=== PATIENT | male | born 1980 | race Caucasian/White ===

== ENCOUNTER 2021-04-20 18:48 | Emergency (ER) | payer OTHER ==
[~2021-04-20] VITALS: Ht 177.8 cm; Wt 68.0 kg
[2021-04-20] MEDS ORDERED: CLON.5 PO (21:15)
[2021-04-20] MEDS ORDERED: NAPR500 PO (21:15)
== END 2021-04-20 21:20 | disposition home or self-care (01) ==
LOC: ER 18:48
DX: G43.909 Migraine, unspecified, not intractable, without status migrainosus (principal); Z20.822 Contact with and (suspected) exposure to COVID-19; Z79.899 Other long term (current) drug therapy
CPT/HCPCS: 99282